=== PATIENT | female | born 1985 | race Caucasian/White ===

== ENCOUNTER 2019-04-25 13:55 | Outpatient (CLI) | payer BC | END 2019-04-25 13:56 | disposition home or self-care (01) | LOC: DTY/OP 13:55 | PROVIDERS: ATTEND Surgery | DX: E66.01 Morbid (severe) obesity due to excess calories (principal) | CPT/HCPCS: 97802 ==

== ENCOUNTER 2019-06-21 05:33 | Outpatient (CLI) | payer BC ==
--- NOTE | 2019-06-21 17:50 | RAD ---
XR Chest Pa Lat STANDARD HISTORY: Preop evaluation COMPARISON: 02/19/2013 FINDINGS: The heart size is normal. The lungs are well expanded without focal areas of consolidation, pneumothorax or pleural effusions. IMPRESSION: No radiographic evidence of acute cardiopulmonary process.
[2019-06-21 18:09] LABS: #Basophils 0.1 thou/uL (0.0-0.2); #Eosinphils 0.3 thou/uL (0.0-0.7); #Lymphocytes 3.3 thou/uL (1.20-3.40); #Monocytes 0.7 thou/uL (0.11-0.59); #Neutrophils 7.8 thou/uL (1.40-6.50); %Basophils 0.7 % (0.0-1.0); %Eosinophils 2.4 % (0.0-10.0); %Lymphocytes 26.8 % (21.0-51.0); Mean Corpuscular HGB CONC 33.1 g/dL (32.0-36.0); Mean Corpuscular Hemoglobin 28.3 pg (27.0-31.0); Mean Corpuscular Volume 85.5 fL (78.0-98.0); Mean Platelet Volume 6.9 fL (7.4-10.4); Platelet Count 417 thou/uL (130-400); RBC Distribution Width 13.4 % (11.5-14.5); White Blood Cell (WBC) Count 12.2 thou/uL (4.8-10.8)
[2019-06-21 18:16] LABS: Hemoglobin A1c 5.3 % (4.0-6.0)
[2019-06-21 18:21] LABS: BHCG - Serum Negative (NEGATIVE); Pregs Control Background? CLEAR/WHITE (CLR/WHITE); Pregs Control Bar Appear? YES (CONTROL BAR)
[2019-06-21 18:34] LABS: ALT (SGPT) 13 U/L (8-55); AST (SGOT) 16 U/L (5-34); Albumin 4.3 g/dL (3.5-5.0); Alkaline Phosphatase 83 U/L (40-110); Anion Gap 14 mmol/L (10-20); BUN (Urea Nitrogen) 20 mg/dL (7.0-18.7); Bilirubin, Total 0.4 mg/dL (0.2-1.2); Calc. Creatinine Clearance 0 mL/min (70-130); Carbon Dioxide 25 mmol/L (22-29); Chloride 102 mmol/L (98-107); Estimated GFR-MDRD 82; Globulin 2.8 g/dL (2.4-3.5); Glucose 82 mg/dL (70-105); Potassium 4.1 mmol/L (3.5-5.1); Protein, Total 7.1 g/dL (6.0-8.3); Sodium 137 mmol/L (136-145)
== END 2019-06-21 05:34 | disposition home or self-care (01) ==
LOC: LABBT 05:33
PROVIDERS: ATTEND Surgery
DX: Z01.818 Encounter for other preprocedural examination (principal); E66.01 Morbid (severe) obesity due to excess calories
CPT/HCPCS: 71046; 80053; 83036; 84703; 85025

== ENCOUNTER 2019-06-21 16:30 | Inpatient (IN) | payer BC ==
[2019-06-21 17:11] VITALS: BMI 48.4
[2019-07-04] MEDS ORDERED: Heparin 5,000 UNITS/ML VIAL ONE (06:24)
[2019-07-04] MEDS ORDERED: Midazolam HCl 2 mg/2 ml Vial ONE ×2 (06:51→07:24)
[2019-07-04] MEDS ORDERED: Fentanyl 100 MCG/2 ML VIAL ONE (06:51)
[2019-07-04] MEDS ORDERED: Bupivacaine 0.25% HCL 30 ML VIAL ONE (07:04)
[2019-07-04 07:27] LABS: BHCG - Serum Negative (NEGATIVE); Pregs Control Background? CLEAR/WHITE (CLR/WHITE); Pregs Control Bar Appear? YES (CONTROL BAR)
[2019-07-04] MEDS ORDERED: Lidocaine 1% w/Epinephrine 1:100K 20 ML VIAL ONE (08:01)
[2019-07-04] MEDS ORDERED: Ondansetron PF 4 MG/2 ML Vial IVP PRN (08:50)
[2019-07-04] MEDS ORDERED: diphenhydrAMINE 50 MG/ML VIAL IVP PRN ×2 (08:50→09:13)
[2019-07-04] MEDS ORDERED: hydrALAZINE 20 MG/ML VIAL SLOW IVP PRN (08:50)
[2019-07-04] MEDS ORDERED: Hydrocodone-Acetamin 15 ML UDCUP PO PRN (08:50)
[2019-07-04] MEDS ORDERED: Dextrose 50% Abboject 50 ML SYRINGE SLOW IVP PRN (08:50)
[2019-07-04] MEDS ORDERED: Dextrose 5% in Water 1,000 ML IV PRN (08:50)
[2019-07-04] MEDS ORDERED: Promethazine HCl 25 MG/ML VIAL IM PRN ×2 (08:50→09:13)
[2019-07-04] MEDS ORDERED: Sodium Chloride 0.9% (PF) 10 ML VIAL FS PRN (09:08)
[2019-07-04] MEDS ORDERED: diphenhydrAMINE 50 MG/ML VIAL IM PRN (09:13)
[2019-07-04] MEDS ORDERED: HYDROmorphone 10 mg/100 ml CADD IVPB PRN (09:13)
[2019-07-04] MEDS ORDERED: Naloxone HCl 0.4 mg/ml Vial IV PRN (09:13)
[2019-07-04] MEDS ORDERED: diphenhydrAMINE 25 MG CAP PO PRN (09:13)
[2019-07-04] MEDS ORDERED: Zolpidem Tartrate 5 MG TAB PO PRN (09:13)
[2019-07-04] MEDS ORDERED: Communication Order-Pharmacy FS SCH (09:15)
[2019-07-04] MEDS ORDERED: HYDROmorphone 0.5 MG/0.5 ML SYRINGE ONE ×2 (09:25→09:44)
[2019-07-04] MEDS ORDERED: Promethazine HCl 25 MG/ML VIAL ONE (10:07)
[2019-07-04] MEDS: D5 1/2 NS w/20 mEq KCL 1,000 ML IV SCH ×2 (11:27→15:08)
[2019-07-04] MEDS ORDERED: Dexamethasone 20 MG/5 ML VIAL ONE (11:28)
[2019-07-04] MEDS ORDERED: Rocuronium Bromide 10 MG/ML (10ML VIAL) ONE (11:28)
[2019-07-04] MEDS ORDERED: Glycopyrrolate 0.2 MG/ML 5 ML SYRINGE ONE (11:28)
[2019-07-04] MEDS ORDERED: Esmolol 100 MG/10 ML VIAL ONE (11:28)
[2019-07-04] MEDS ORDERED: diphenhydrAMINE 50 MG/ML VIAL ONE (11:28)
[2019-07-04] MEDS ORDERED: PROPOFOL 200 MG/20 ML VIAL ONE (11:28)
[2019-07-04] MEDS ORDERED: Ondansetron PF 4 MG/2 ML Vial ONE (11:28)
[2019-07-04] MEDS: CEFAZOLIN 2 GM in Premix Bag 1 BAG IVPB SCH ×2 (15:09→23:13)
--- NOTE | 2019-07-04 15:15 | OP ---
DATE OF PROCEDURE: 07/04/2019 PREOPERATIVE DIAGNOSIS: Morbid obesity. PROCEDURE PERFORMED: Laparoscopic sleeve gastrectomy with esophagogastroscopy. INDICATIONS: A 33-year-old female, morbidly obese, who has attempted multiple weight loss programs without success. FINDINGS: 38-Cymro bougie used. DESCRIPTION OF PROCEDURE: After informed consent was obtained, the patient was taken to the operating room and given general endotracheal anesthesia. She was placed in the supine position. Abdomen was prepped and draped in usual fashion. Local anesthesia infiltrated subcutaneously and deep, and a 12 mm incision was performed 8 inches below the xiphoid slight to the left. Veress needle inserted. Drop test performed. Pneumoperitoneum was created to a volume of 2 L of carbon dioxide. Utilizing a bladeless 12 mm trocar and 0-degree laparoscope, direct visual entry into the abdominal cavity was performed. Pneumoperitoneum was then created to a pressure of 15 mmHg, and the patient was placed in steep reverse Trendelenburg position. Poli liver retractor was inserted. Left lobe of the liver retracted superiorly. The pylorus was identified. A 12-mm port was placed on the right beneath it and two 12s placed left subcostal. The omentum was taken off the greater curvature 5 cm from the pylorus utilizing the LigaSure. Short gastrics divided with LigaSure and left crura defined with LigaSure. A 38-Cymro bougie inserted, directed into the antrum. The linear 60 mm green load stapler was used to divide the antrum to the bougie, gold load along the bougie, and a series of blues through the angle of His. Intraoperative endoscopy was performed. The video endoscope was inserted under direct vision and advanced into the sleeve. The staple line inspected. There was no bleeding. Staple line then tested by inflating the new stomach with pressurized air under water. There was no air leak. Stomach decompressed. Scope removed. The remnant stomach was removed from the abdomen through the left lateral port site. The fascia was closed with 0 Vicryl suture and the GraNee needle. Hemostasis was assured. Trocars and retractors were removed. The skin was closed with interrupted 4-0 Rapide. Dermabond was applied. The patient tolerated the procedure well, transferred to Recovery in good condition. Sponge and needle count verified correct x2. Job ID: [id number]
[2019-07-04] MEDS: Pantoprazole 40 MG VIAL IVP SCH (15:29)
[2019-07-04] MEDS: Ketorolac Tromethamine 30 MG/ML VIAL IVP SCH ×2 (18:43→18:44)
[2019-07-04] MEDS: Enoxaparin Sodium 40 MG/0.4 ML SYRINGE SC SCH (21:18)
[2019-07-04] MEDS: Ondansetron PF 4 MG/2 ML Vial IVP PRN (23:15)
[2019-07-05] MEDS: D5 1/2 NS w/20 mEq KCL 1,000 ML IV SCH ×4 (00:26→20:09)
[2019-07-05 05:19] LABS: #Basophils 0.1 thou/uL (0.0-0.2); #Lymphocytes 2.2 thou/uL (1.20-3.40); #Monocytes 1.1 thou/uL (0.11-0.59); #Neutrophils 9.4 thou/uL (1.40-6.50); %Basophils 0.6 % (0.0-1.0); %Eosinophils 0.2 % (0.0-10.0); %Lymphocytes 17.1 % (21.0-51.0); %Monocytes 8.8 % (0.0-10.0); %Neutrophils 73.4 % (42.0-75.0); Mean Corpuscular HGB CONC 32.1 g/dL (32.0-36.0); Mean Corpuscular Hemoglobin 28.1 pg (27.0-31.0); Mean Corpuscular Volume 87.6 fL (78.0-98.0); Mean Platelet Volume 7.2 fL (7.4-10.4); Platelet Count 318 thou/uL (130-400); RBC Distribution Width 13.7 % (11.5-14.5); Red Blood Cell (RBC) Count 4.26 mill/uL (4.20-5.40); White Blood Cell (WBC) Count 12.8 thou/uL (4.8-10.8)
[2019-07-05 05:46] LABS: Anion Gap 11 mmol/L (10-20); BUN (Urea Nitrogen) 4 mg/dL (7.0-18.7); Calc. Creatinine Clearance 205 mL/min (70-130); Calcium 8.3 mg/dL (7.8-10.44); Carbon Dioxide 25 mmol/L (22-29); Chloride 106 mmol/L (98-107); Estimated GFR-MDRD Greater than 90; Glucose 127 mg/dL (70-105); Potassium 3.8 mmol/L (3.5-5.1); Sodium 138 mmol/L (136-145)
--- NOTE | 2019-07-05 08:43 | RAD ---
EXAM: XR UGI Single Contrast No Air PROVIDED CLINICAL HISTORY: Post bariatric surgery related to gastric sleeve procedure. COMPARISON: None FINDINGS: 15 mL of Gastrografin was administered for the exam. There is transient holdup of contrast at the lev el of the GE junction. Postoperative changes related to gastric sleeve procedure are noted. Contrast persists in the esophagus for approximately 10 minutes but eventually extends into the stoma ch with contrast seen in loops of small bowel. No extravasation of contrast is seen to suggest a leak. IMPRESSION: Postoperative changes related to gastric sleeve procedure. Mild transient holdup of contrast at the G E junction is present, but contrast eventually traverses into the stomach and subsequently into loops of small bowel.
[2019-07-05] MEDS ORDERED: FLU VACC QS2019-20(6MOS UP)/PF 60 MCG/0.5 ML SYRINGE IM ONE (09:00)
[2019-07-05] MEDS: Pantoprazole 40 MG VIAL IVP SCH (09:23)
[2019-07-05] MEDS: Enoxaparin Sodium 40 MG/0.4 ML SYRINGE SC SCH ×2 (09:31→20:12)
[2019-07-05] MEDS ORDERED: GASTROGRAFIN 30 ML BOT ONE (11:21)
[2019-07-05] MEDS: Ondansetron PF 4 MG/2 ML Vial IVP PRN (14:14)
[2019-07-06 03:39] VITALS: TEMP 98.3
[2019-07-06 07:34] VITALS: BP 139/74
[2019-07-06] MEDS: D5 1/2 NS w/20 mEq KCL 1,000 ML IV SCH (08:31)
[2019-07-06] MEDS: Pantoprazole 40 MG VIAL IVP SCH (08:32)
[2019-07-06] MEDS: Enoxaparin Sodium 40 MG/0.4 ML SYRINGE SC SCH (08:32)
--- NOTE | 2019-07-08 11:50 | DIS ---
DATE OF ADMISSION: 07/04/2019 DATE OF DISCHARGE: 07/06/2019 DISCHARGE DIAGNOSES: 1. Morbid obesity. 2. Hypercoagulable state. PROCEDURES DURING ADMISSION: Laparoscopic gastric sleeve, intraoperative esophagogastroscopy, postoperative Gastrografin swallow. HOSPITAL COURSE: The patient was admitted, taken to the operating room, where she underwent a sleeve gastrectomy. Postoperatively, she was maintained on Lovenox. Her postop x-ray was fine. She was started on liquids. She is tolerating them well. She is discharged home on Lovenox, hydrocodone, and Zofran. She will follow up with me in 2 weeks. Job ID: [id number]
== END 2019-07-06 09:30 | disposition home or self-care (01) | DRG 621 ==
LOC: SURG A 07-04 05:38
PROVIDERS: ADMIT Surgery; ATTEND Surgery
PROC: 0DB64Z3 Excision of Stomach, Percutaneous Endoscopic Approach, Vertical (ICD-10-PCS; principal; 2019-07-04)
PROC: 0DJ08ZZ Inspection of Upper Intestinal Tract, Via Natural or Artificial Opening Endoscopic (ICD-10-PCS; 2019-07-04)
DX: E66.01 Morbid (severe) obesity due to excess calories (principal); F41.9 Anxiety disorder, unspecified; E03.9 Hypothyroidism, unspecified; Z79.899 Other long term (current) drug therapy; Z79.890 Hormone replacement therapy; Z79.01 Long term (current) use of anticoagulants; Z86.711 Personal history of pulmonary embolism; Z68.42 Body mass index [BMI] 45.0-49.9, adult
CPT/HCPCS: 36415; 74240; 80048; 84703; 85025; 88307; 88312; 90471; 90686; C9113; G0008; J0690; J1100; J1170; J1200; J1644; J1650; J2250; J2405; J2550; J2704; J3010; S0020